=== PATIENT | female | born 1960 | race Two or more races ===

== ENCOUNTER → 2016-11-04 | Outpatient (REF) | payer BC | LOC: M SFHCLERA 14:27 | PROVIDERS: ATTEND Nurse Practitioner Family | DX: R50.9 Fever, unspecified (principal) ==

== ENCOUNTER 2017-05-22 18:05 | Emergency (ER) | payer BC ==
[~2017-05-22] VITALS: Ht 160 cm; Wt 65.9 kg
[2017-05-22] MEDS ORDERED: PERCOCET 5MG/325MG TAB PO ONE (19:15)
[2017-05-22] MEDS ORDERED: BUPIVACAINE HCL 0.5% 10 ML VIAL SC ONE (19:15)
[2017-05-22] MEDS ORDERED: PERC5TAB12 PO (20:01)
[2017-05-22] MEDS ORDERED: KEFL500C17 PO (20:01)
[2017-05-22 20:10] VITALS: BP 167/107
[2017-06-27] MEDS ORDERED: VITA10006 PO (16:53)
[2017-06-27] MEDS ORDERED: VITA200016 PO (16:53)
== END 2017-05-22 20:15 | disposition home or self-care (01) ==
LOC: M ED 18:05
DX: S91.212A Laceration without foreign body of left great toe with damage to nail, initial encounter (principal); W29.3XXA Contact with powered garden and outdoor hand tools and machinery, initial encounter; Y92.019 Unspecified place in single-family (private) house as the place of occurrence of the external cause; Y93.89 Activity, other specified; Y99.8 Other external cause status; Z88.8 Allergy status to other drugs, medicaments and biological substances; Z88.5 Allergy status to narcotic agent

== ENCOUNTER 2017-07-11 08:06 | Day surgery (SDC) | payer BC ==
[~2017-07-11] VITALS: Ht 160 cm; Wt 63.5 kg
[~2017-07-11 08:06] MED LIST: KEFL500C17 PO; PERC5TAB12 PO; VITA10006 PO; VITA200016 PO
[2017-07-11] MEDS: NS 1,000 ML IV ONE (08:25)
[2017-07-11] MEDS ORDERED: PROPOFOL 200 MG/20 ML VIAL As Ordered ONE (08:56)
[2017-07-11] MEDS ORDERED: LIDOCAINE 2% INJ 100 MG/5 ML SDV (FOR ANES.) As Ordered ONE (08:56)
--- NOTE | 2017-07-11 09:41 | ROOR ---
Patient Name: Yessi Diaz Procedure Date: 07/11/2017 9:17 AM Date of : 1960 Age: 56 Room: [facility] Gender: Female Note Status: Finalized Procedure: Colonoscopy Indications: High risk colon cancer surveillance: Personal history of colonic polyps, Family history of colon cancer in a first-degree relative (brother dfied of colon cancer at age 39) Providers: Ej SANCHEZ MD Referring MD: J CARLOS PHIPPS NP Requesting Provider: Medicines: Monitored Anesthesia Care Complications: No immediate complications. Procedure: Pre-Anesthesia Assessment: - The heart rate, respiratory rate, oxygen saturations, blood pressure, adequacy of pulmonary ventilation, and response to care were monitored throughout the procedure. The Colonoscope was introduced through the anus and advanced to the cecum, identified by appendiceal orifice and ileocecal valve. The colonoscopy was performed without difficulty. The patient tolerated the procedure well. The quality of the bowel preparation was good. Findings: The perianal and digital rectal examinations were normal. (Exam: Complete, Prep: Good or Excellent.) A 4 mm polyp was found in the sigmoid colon. The polyp was sessile. The polyp was removed with a cold snare. Resection and retrieval were complete. The exam was otherwise without abnormality on direct and retroflexion views. Impression: - (Exam: Complete, Prep: Good or Excellent.) - One 4 mm polyp in the sigmoid colon, removed with a cold snare. Resected and retrieved. - Small internal hemorrhoids. - The examination was otherwise normal on direct and retroflexion views. Recommendation: - Telephone endoscopist for pathology results in 2 weeks. - If the pathology report reveals adenomatous tissue, then repeat the colonoscopy for surveillance in 3 years. - If the pathology report indicates hyperplastic polyp, then repeat colonoscopy for screening purposes in 5 years. Ej Sanchez MD Ej SANCHEZ MD 07/11/2017 9:40:47 AM This report has been signed electronically. Number of Addenda: 0 Note Initiated On: 07/11/2017 9:17 AM Estimated Blood Loss: Estimated blood loss: none.
[2017-07-11 10:05] VITALS: BP 132/92
== END 2017-07-11 10:21 | disposition home or self-care (01) ==
LOC: M OPP 08:06
PROVIDERS: ATTEND Internal Medicine Gastroenterology
DX: Z12.11 Encounter for screening for malignant neoplasm of colon (principal); D12.5 Benign neoplasm of sigmoid colon; Z86.010 Personal history of colon polyps; Z88.5 Allergy status to narcotic agent; Z88.8 Allergy status to other drugs, medicaments and biological substances; Z78.0 Asymptomatic menopausal state; Z80.0 Family history of malignant neoplasm of digestive organs